=== PATIENT | female | born 1945 | race Caucasian/White ===

== ENCOUNTER 2016-06-06 13:48 | Emergency (ER) | payer MEDICARE, OTHER ==
[~2016-06-06 13:48] MED LIST: ALBUTEROL SULF8.5 GM IH; ALENDRONATE SOD70 M2 PO; AMIODARONE HCL200 MG PO; ASPIRIN81 MG; ASPIRIN81 MG PO; AUGMENTIN875 MG PO; CENTRUM SILVER1 TA PO; CHLORASEPTIC LO2 LOZ MT; COLACE100 MG PO; DAILY MULTIPLE1 EAC2 PO; FIBER170 GM PO; FIBER500 M1 PO; FISH OIL 1,2001 EAC2 PO; FISH OIL 1,2001 EAC4 PO; FOSAMAX70 MG PO; ICAPS TABLET1 EACH PO; LASIX20 M1 PO; LASIX20 MG PO; LEVAQUIN500 MG PO; LISINOPRIL10 MG PO; LORTAB 5/500 TA1 TAB PO; MULTIVITAMIN1 TAB; NASONEX17 GM; NASONEX17 GM NS; NORVASC5 MG; NORVASC5 MG PO; OCUVITE TABLET1 TAB; PANTOPRAZOLE SO40 MG PO; PEN-VEE K500 MG PO; POTASSIUM CHLO20 ME1 PO; PROCTOFOAM-HC F10 GM RC; ROBITUSSIN-DM5 M1 PO; STOOL SOFTENER1 EAC4 PO; VIBRAMYCIN100 MG PO; [UNRECOGNIZED DRUG - OTHER] PO; bp pill
[2016-06-06] MEDS ORDERED: PREDNISONE20 M1 PO (14:59)
[2016-06-06] MEDS ORDERED: PEPCID20 M1 PO (15:01)
== END 2016-06-06 15:10 ==
LOC: EDMED 13:48
DX: T78.40XA Allergy, unspecified, initial encounter (principal); I10 Essential (primary) hypertension; K21.9 Gastro-esophageal reflux disease without esophagitis
CPT/HCPCS: J0171; J7512